=== PATIENT | female | born 1940 | race Caucasian/White ===

== ENCOUNTER 2018-11-06 10:34 | Outpatient (CLI) | payer MEDICARE, BC ==
--- NOTE | 2018-11-06 12:51 | RAD ---
LUMBAR SPINE SERIES FOUR VIEWS INCLUDING FLEXION AND EXTENSION: History: Back pain. FINDINGS: The vertebral bodies maintain normal height. There is mild disc narrowing at L4-5 and pronounced disc narrowing at the L5-S1 level. There is a spondylolisthesis of L4 on L5. It measures 9-10 mm in neutr al position, approximately 10-11 mm in flexion and reducing slightly to 7-8 mm in extension. There is limited motion on extension and flexion. There are marked degenerative facet changes noted. IMPRESSION: Moderate arthritic change of the lower lumbar spine. Spondylolisthesis of L4 on L5 as discussed above . POS: [facility]
--- NOTE | 2018-11-06 13:19 | RAD ---
CERVICAL SPINE FIVE VIEWS INCLUDING FLEXION AND EXTENSION LATERAL VIEWS: HISTORY: Lumbar radiculopathy. FINDINGS: There is very severe multilevel disk osteophytosis with marked disk space narrowing of the cervical s pine, including C4-C5, C6-C7, and C5-C6, with severe disk osteophytosis and severe facet arthrosis. There is evidence for retrolisthesis at C6-C7. No abnormal translation between flexion and extension . No significant prevertebral soft tissue swelling. Bilateral carotid artery calcifications within the neck. C1 and C2 odontoid are obscured on the AP open-mouth view. IMPRESSION: 1. Very severe spondylosis with extensive disk osteophytosis and disk space narrowing. 2. No abnormal translation between flexion and extension. 3. Bilateral carotid artery vascular calcifications. 4. No prevertebral soft tissue swelling. POS: [facility]
--- NOTE | 2018-11-06 15:00 | CT ---
CT LUMBAR SPINE WITHOUT CONTRAST: HISTORY: Lumbar radiculopathy, radiating down both legs with numbness. COMPARISON: None. TECHNIQUE: Noncontrast CT of the lumbar spine is performed. Reformatted images are submitted. FINDINGS: No retroperitoneal mass, lymphadenopathy, or hematoma. There are a few scattered nonspecific left pe riaortic lymph nodes. No aneurysmal dilatation. The visualized solid organs are unremarkable. Diverticulosis in the visualized colon. No evidence of diverticulitis. There are five lumbar type vertebral bodies. Lumbar spine vertebral body height is maintained. Ther e is no fracture. There is grade 1 anterolisthesis of L4 upon L5 (6 mm). There is no associated spo ndylolysis. There is vacuum disk phenomenon at L4-L5 and at L5-S1. There is sclerosis involving the L5-S1 disk space, suggesting chronic degenerative change. Hyperdensity within the central portion of the disk at L2-L3. Limited evaluation of the contents of the central spinal canal and neural foramina due to technique. Vacuum joint phenomenon in both SI joints. T12-L1: No significant central canal stenosis. There is mild narrowing of the right neural foramen secondary to disk material. The left neural foramen is patent. L1-L2: No significant loss of disk space height. [id number], there is a generalized disk bulge, with resultant mild central canal stenosis. The neural foramina are patent bilaterally. L2-L3: Disk space height is preserved. There is a generalized disk bulge, ligamentum flavum thicken ing, and facet hypertrophy that results in mild to moderate central canal stenosis. Mild bilateral n eural foraminal narrowing. L3-L4: Mild loss of disk space height. Generalized disk bulge, ligamentum flavum thickening, and fa cet hypertrophy result in moderate central canal stenosis. Mild right and mild to moderate left neur al foraminal narrowing. L4-L5: Mild loss of disk space height. Broad-based disk bulge, ligamentum flavum thickening, and fa cet hypertrophy result in severe central canal stenosis. Moderate bilateral foraminal narrowing. L5-S1: Severe loss of disk space height. Generalized disk bulge with a small right subarticular com ponent. No significant stenosis of the thecal sac. There is some mass effect and presumed obscurati on of the traversing right S1 nerve root. The left subarticular zone is unremarkable. Moderate to s evere bilateral foraminal narrowing. IMPRESSION: Significant central canal stenosis and foraminal narrowing at L5-S1 and L4-L5, as described above. A dditionally, there is significant neural foraminal narrowing at L2-L3. There is mild narrowing of th e right neural foramen at T12-L1. POS: [facility]
== END 2018-11-06 10:35 | disposition home or self-care (01) ==
LOC: BICCT 10:34
PROVIDERS: ATTEND Surgery
DX: M54.16 Radiculopathy, lumbar region (principal); M48.07 Spinal stenosis, lumbosacral region; M48.05 Spinal stenosis, thoracolumbar region; M47.812 Spondylosis without myelopathy or radiculopathy, cervical region; M25.78 Osteophyte, vertebrae; I65.23 Occlusion and stenosis of bilateral carotid arteries
CPT/HCPCS: 72050; 72110; 72131

== ENCOUNTER 2019-04-16 07:30 | Inpatient (IN) | payer MEDICARE, BC ==
[2019-04-15 09:06] VITALS: BMI 24.0
[2019-04-16] MEDS ORDERED: Thrombin 5000 UNITS/5 ML VIAL ONE (09:12)
[2019-04-16] MEDS ORDERED: Sodium Chloride 0.9% 10 ML ONE (09:12)
[2019-04-16 09:16] LABS: #Eosinphils 0.1 thou/uL (0.0-0.7); #Lymphocytes 1.4 thou/uL (1.20-3.40); #Monocytes 0.5 thou/uL (0.11-0.59); #Neutrophils 6.6 thou/uL (1.40-6.50); %Basophils 0.5 % (0.0-1.0); %Eosinophils 1.1 % (0.0-10.0); %Lymphocytes 15.9 % (21.0-51.0); %Monocytes 5.4 % (0.0-10.0); %Neutrophils 77.2 % (42.0-75.0); Hemoglobin 12.9 g/dL (12.0-16.0); Mean Corpuscular HGB CONC 32.8 g/dL (32.0-36.0); Mean Corpuscular Hemoglobin 31.9 pg (27.0-31.0); Mean Corpuscular Volume 97.2 fL (78.0-98.0); Mean Platelet Volume 9.4 fL (7.4-10.4); Platelet Count 177 thou/uL (130-400); RBC Distribution Width 11.2 % (11.5-14.5); Red Blood Cell (RBC) Count 4.03 mill/uL (4.20-5.40); White Blood Cell (WBC) Count 8.6 thou/uL (4.8-10.8)
[2019-04-16 09:24] LABS: Prothrombin Time 12.9 SEC (12.0-14.7)
[2019-04-16 09:25] LABS: PTT 36.4 SEC (22.9-36.1)
[2019-04-16 09:26] LABS: Anion Gap 15 mmol/L (10-20); BUN (Urea Nitrogen) 35 mg/dL (9.8-20.1); Calc. Creatinine Clearance 33 mL/min (70-130); Calcium 10.5 mg/dL (7.8-10.44); Carbon Dioxide 26 mmol/L (23-31); Chloride 106 mmol/L (98-107); Estimated GFR-MDRD 38; Glucose 126 mg/dL (83-110); Potassium 3.6 mmol/L (3.5-5.1); Sodium 143 mmol/L (136-145)
[2019-04-16] MEDS ORDERED: Fentanyl 100 MCG/2 ML VIAL ONE ×5 (09:55→16:10)
[2019-04-16] MEDS ORDERED: Mag-Al 1200 mg/1200 mg/30 ML UDCUP PO PRN (13:16)
[2019-04-16] MEDS ORDERED: Bisacodyl 10 MG SUPP PR PRN (13:16)
[2019-04-16] MEDS ORDERED: Milk Of Magnesia 30 ML UDCUP PO PRN (13:16)
[2019-04-16] MEDS ORDERED: Fleet Enema 133 ML BOT PR PRN (13:16)
[2019-04-16] MEDS ORDERED: traMADol HCl 50 MG TAB PO PRN (13:16)
[2019-04-16] MEDS ORDERED: Morphine 4 MG/ML VIAL SLOW IVP PRN (13:16)
[2019-04-16] MEDS ORDERED: Acetaminophen 325 MG TAB PO PRN (13:16)
[2019-04-16] MEDS ORDERED: PROPOFOL 200 MG/20 ML VIAL ONE (15:48)
[2019-04-16] MEDS ORDERED: Glycopyrrolate 0.2 MG/ML 5 ML SYRINGE ONE (15:48)
[2019-04-16] MEDS ORDERED: Ondansetron PF 4 MG/2 ML Vial ONE (15:48)
[2019-04-16] MEDS ORDERED: Dexamethasone 20 MG/5 ML VIAL ONE (15:48)
[2019-04-16] MEDS ORDERED: ePHEDrine 50 MG/ML VIAL ONE (15:48)
[2019-04-16] MEDS ORDERED: PHENYLEPHRINE-NS 100 MCG/ML 10 ML SYRINGE ONE (15:48)
[2019-04-16] MEDS ORDERED: Rocuronium Bromide 10 MG/ML (10ML VIAL) ONE (15:48)
[2019-04-16] MEDS ORDERED: Lidocaine 1% PF 5 ML VIAL ONE (15:48)
[2019-04-16] MEDS ORDERED: CEFAZOLIN 2 GM in Premix Bag 1 BAG IVPB SCH (17:00)
[2019-04-16] MEDS: CEFAZOLIN 2 GM in Premix Bag 1 BAG IVPB SCH (17:33)
[2019-04-16] MEDS: Sodium Chloride 0.9% 1,000 ML IV SCH (17:39)
[2019-04-16] MEDS: Carvedilol 6.25 MG TAB PO SCH (21:38)
[2019-04-16] MEDS: HYDROcodone/Acetaminophen 7.5/325 mg Tablet PO PRN (21:41)
[2019-04-17] MEDS: CEFAZOLIN 2 GM in Premix Bag 1 BAG IVPB SCH (00:48)
[2019-04-17] MEDS: Sodium Chloride 0.9% 1,000 ML IV SCH (06:17)
[2019-04-17] MEDS ORDERED: LOSARTAN POTASSIUM PO SCH (09:00)
[2019-04-17] MEDS ORDERED: Atorvastatin Calcium 20 MG TAB PO SCH (09:00)
[2019-04-17] MEDS ORDERED: Escitalopram Oxalate 10 mg Tablet PO SCH (09:00)
[2019-04-17] MEDS: Carvedilol 6.25 MG TAB PO SCH (09:54)
--- NOTE | 2019-04-17 11:36 | OP ---
DATE OF PROCEDURE: 04/16/2019 LOCATION: OR 12. WOUND CLASSIFICATION: Type 1 wound. COAGULANT DIPPER: Ramiro Ramos PA-C PREPROCEDURE DIAGNOSES: 1. Multilevel lumbar stenosis with low back and leg pain with lumbar radiculopathy. 2. Lumbar spondylolisthesis with lumbar synovial cyst. POSTPROCEDURE DIAGNOSES: 1. Multilevel lumbar stenosis with low back and leg pain with lumbar radiculopathy. 2. Lumbar spondylolisthesis with lumbar synovial cyst. PROCEDURES PERFORMED: 1. L2-L3, L3-L4, and L5-S1 laminectomies, partial facetectomies, foraminotomies. 2. L4-L5 laminectomy for synovial cyst resection. 3. In-situ fusion with local bone autograft obtained with the same incision, allograft L4-L5 due to stabilized spondylolisthesis with arthrodesis. DESCRIPTION OF PROCEDURE: After informed consent was obtained from the patient, the patient was brought to the OR. Proper patient, pause, and identification were carried out, she was placed under excellent general endotracheal anesthesia and positioned prone on the OR table. All appropriate points were padded. We identified the L2 through S1 dorsal spines and lamina. A linear sanjuanita was made over this region. This area was sterilely cleansed, prepared, and draped. Proper patient, pause, and identification were carried out. The wound was then opened in a combination of sharp, monopolar, and blunt dissection. The L2-S1 dorsal spines and lamina were exposed. Localization film confirmed our area of interest. We then performed L2 through S1 laminectomies, partial facetectomies, and foraminotomies with an L4-L5 laminectomy for synovial cyst resection. We had excellent decompression of common dural tube in the nerve roots. Copious irrigation occurred throughout. We initiated posterolateral arthrodesis at L4-L5 to treat the spondylolisthesis via stabilization process for utilizing in-situ fusion with local bone autograft obtained from same incision allograft. I was satisfied with our decompression and arthrodesis process. Copious irrigation occurred throughout as did maximizing hemostasis. The wound was then closed in anatomic layers following sprinkling of vancomycin powder. Meticulous hemostasis. The patient emerged from anesthesia. Job ID: [id number]
[2019-04-17 12:01] VITALS: BP 117/66; TEMP 98.1
[2019-04-17] MEDS: HYDROcodone/Acetaminophen 7.5/325 mg Tablet PO PRN (12:35)
--- NOTE | 2019-04-17 17:08 | EKG ---
Test Reason : PREOP Blood Pressure : / mmHG Vent. Rate : 056 BPM Atrial Rate : 056 BPM P-R Int : 148 ms QRS Dur : 088 ms QT Int : 458 ms P-R-T Axes : 020 008 054 degrees QTc Int : 441 ms Sinus bradycardia Nonspecific T wave abnormality Abnormal ECG Confirmed by TANYA MACK ([id number]) on 04/17/2019 5:08:20 PM Referred By: JUDI Confirmed By:TANYA MACK
--- NOTE | 2019-04-18 01:53 | DIS ---
DATE OF ADMISSION: 04/16/2019 DATE OF DISCHARGE: 04/17/2019 This is Ramiro Ramos PA-C dictating a report for Mati Castellano MD. DISCHARGE DIAGNOSES: 1. Low back pain with lumbar radiculopathy. 2. Lumbar spinal stenosis. 3. Grade 1 lumbar spondylolisthesis. HOSPITAL COURSE: Ms. Saldana was admitted to undergo multilevel lumbar laminectomies with in situ fusion with Dr. Castellano. Her surgery was without complication. She required an overnight stay for adequate pain control and mobilization. At the time of discharge, the patient is doing well in regard to back and resolution of her bilateral lower extremity symptoms. She has good strength in the bilateral lower extremities with intact sensation to light touch. She met criteria for discharge. Appropriate patient education and outpatient followups were provided for the patient. Again, the patient is doing well postoperatively at the time of discharge. Job ID: [id number]
== END 2019-04-17 15:50 | disposition home or self-care (01) | DRG 460 ==
LOC: SURG A 07:30 → EDSTATUS 15:44 → SURG B 17:12
PROVIDERS: ADMIT Surgery; ATTEND Surgery
PROC: 0SG0071 Fusion of Lumbar Vertebral Joint with Autologous Tissue Substitute, Posterior Approach, Posterior Column, Open Approach (ICD-10-PCS; principal; 2019-04-16)
PROC: 01NB0ZZ Release Lumbar Nerve, Open Approach (ICD-10-PCS; 2019-04-16)
PROC: 01NR0ZZ Release Sacral Nerve, Open Approach (ICD-10-PCS; 2019-04-16)
DX: M43.16 Spondylolisthesis, lumbar region (principal); M48.061 Spinal stenosis, lumbar region without neurogenic claudication; M54.16 Radiculopathy, lumbar region; M71.38 Other bursal cyst, other site
CPT/HCPCS: 36415; 76000; 80048; 85025; 85610; 85730; 93005; 93010; J0131; J0690; J1100; J2001; J2270; J2405; J2704; J3010; J3370; J3490